=== PATIENT | male | born 1965 ===

== ENCOUNTER 2022-04-27 10:39 | Inpatient (IN) | payer OTHER ==
[~2022-04-27] VITALS: Ht 188 cm; Wt 78.5 kg
[2022-04-27 12:26] LABS: BASOPHILS % (AUTO) 0.5 % (0.0-2.0); EOSINOPHILS % (AUTO) 0 % (1.0-6.0); HEMOGLOBIN 12.1 g/dL (13.5-17.5); LYMPHOCYTES # (AUTO) 0.7 K/uL (1.0-4.8); LYMPHOCYTES % (AUTO) 6.8 % (22.0-44.0); MEAN CORPUSCULAR HEMOGLOBIN 27.5 pg (26.0-34.0); MEAN CORPUSCULAR HGB CONC 32.6 G/dL (31.0-37.0); MEAN CORPUSCULAR VOLUME 84 fL (80-100); MONOCYTES # (AUTO) 0.2 K/uL (0.1-1.0); NEUTROPHILS # (AUTO) 9.7 K/uL (1.8-7.7); PLATELET COUNT (AUTO) 343 K/uL (150-450); RED BLOOD CELL COUNT(AUTO) 4.39 MIL/uL (4.50-5.90); RED CELL DISTRIBUTION WIDTH 14.8 % (11.5-14.5)
[2022-04-27 12:33] LABS: NEUTROPHILS % (AUTO) 90.7 % (40.0-70.0)
[2022-04-27 12:38] LABS: ANION GAP 11 mmol/L (8-16); CALCIUM, TOTAL 9.2 mg/dL (8.8-10.5); CARBON DIOXIDE 26 mmol/L (22-29); CHLORIDE 104 mmol/L (98-107); CREATININE 0.92 mg/dL (0.60-1.30); GLUCOSE,RANDOM 126 mg/dL (70-110); POTASSIUM 3.8 mmol/L (3.5-5.1); SODIUM SERUM 141 mmol/L (136-145); UREA NITROGEN, BLOOD 14 mg/dL (7-18)
[2022-04-27 12:40] LABS: GLOMERULAR FILTR. RATE CALC > 60 mL/min (>60)
[2022-04-27 12:42] LABS: COVID AG,FIA SOURCE NASAL SWAB
[2022-04-27 12:43] LABS: ALANINE AMINOTRANSFERASE 10 U/L (12-78); ALBUMIN 3.2 g/dL (3.4-5.0); ALKALINE PHOSPHATASE 67 U/L (46-116); ASPARTATE AMINOTRANSFERASE 12 U/L (15-37); BILIRUBIN,TOTAL 0.3 mg/dL (0.1-1.0); TOTAL PROTEIN, SERUM 7.5 g/dL (6.4-8.2)
[2022-04-27] MEDS ORDERED: ALBUTEROL SULFATE 2.5 MG/0.5 ML NEB SOLUTION NEB PRN (13:15)
[2022-04-27] MEDS ORDERED: IPRATROPIUM BROMIDE 0.5 MG/2.5 ML NEB SOLUTION NEB PRN (13:15)
[2022-04-27] MEDS ORDERED: LORazepam 2 MG/ML VIAL IVP PRN (13:15)
[2022-04-27] MEDS ORDERED: BISACODYL 10 MG RECTAL RECTAL SUPPOSITORY PR PRN (13:15)
[2022-04-27] MEDS ORDERED: 0.9% SODIUM CHLORIDE 10 ML SYRINGE IVP PRN (13:15)
[2022-04-27] MEDS ORDERED: CloNIDine HCL 0.1 MG TABLET PO PRN (13:15)
[2022-04-27] MEDS: ACETAMINOPHEN 325 MG TABLET PO PRN ×3 (13:57→23:53)
[2022-04-27] MEDS: FAMOTIDINE 20 MG TABLET PO SCH (13:58)
[2022-04-27 15:52] VITALS: BP 102/60
[2022-04-27] MEDS: LOPERAMIDE HCL 2 MG CAPSULE PO PRN (17:48)
[2022-04-27] MEDS: ONDANSETRON HCL 4 MG/2 ML VIAL IVP PRN (19:47)
[2022-04-27 19:50] VITALS: BP 107/72
[2022-04-28] MEDS: ONDANSETRON HCL 4 MG/2 ML VIAL IVP PRN ×2 (02:09→13:05)
[2022-04-28 04:25] VITALS: BP 117/67
[2022-04-28 06:41] LABS: BASOPHILS % (AUTO) 0.3 % (0.0-2.0); EOSINOPHILS % (AUTO) 0.1 % (1.0-6.0); HEMOGLOBIN 11.5 g/dL (13.5-17.5); LYMPHOCYTES # (AUTO) 1.1 K/uL (1.0-4.8); LYMPHOCYTES % (AUTO) 14.7 % (22.0-44.0); MEAN CORPUSCULAR HEMOGLOBIN 27.8 pg (26.0-34.0); MEAN CORPUSCULAR HGB CONC 32.8 G/dL (31.0-37.0); MEAN CORPUSCULAR VOLUME 85 fL (80-100); MONOCYTES # (AUTO) 0.5 K/uL (0.1-1.0); MONOCYTES % (AUTO) 5.9 % (2.0-9.0); PLATELET COUNT (AUTO) 278 K/uL (150-450); RED BLOOD CELL COUNT(AUTO) 4.12 MIL/uL (4.50-5.90); RED CELL DISTRIBUTION WIDTH 15.1 % (11.5-14.5)
[2022-04-28 06:59] LABS: ALANINE AMINOTRANSFERASE 9 U/L (12-78); ALBUMIN 3.3 g/dL (3.4-5.0); ALKALINE PHOSPHATASE 67 U/L (46-116); ANION GAP 9 mmol/L (8-16); ASPARTATE AMINOTRANSFERASE 12 U/L (15-37); BILIRUBIN,TOTAL 0.4 mg/dL (0.1-1.0); CARBON DIOXIDE 26 mmol/L (22-29); CHLORIDE 106 mmol/L (98-107); CREATININE 0.86 mg/dL (0.60-1.30); GLUCOSE,RANDOM 104 mg/dL (70-110); POTASSIUM 3.2 mmol/L (3.5-5.1); SODIUM SERUM 141 mmol/L (136-145); TOTAL PROTEIN, SERUM 7.1 g/dL (6.4-8.2); UREA NITROGEN, BLOOD 14 mg/dL (7-18)
[2022-04-28 07:15] LABS: GLOMERULAR FILTR. RATE CALC > 60 mL/min (>60)
[2022-04-28 08:13] VITALS: BP 119/75
[2022-04-28] MEDS: FOLIC ACID 1 MG TABLET PO SCH (08:36)
[2022-04-28] MEDS: FAMOTIDINE 20 MG TABLET PO SCH (08:36)
[2022-04-28] MEDS: MULTIVITAMINS WITH MINERALS, THERAPEUTIC TABLET PO SCH (08:36)
[2022-04-28] MEDS: THIAMINE 100 MG TABLET PO SCH (08:36)
[2022-04-28] MEDS ORDERED: POTASSIUM CHLORIDE 20 MEQ ER TABLET PO PRN (15:30)
[2022-04-28] MEDS: METHADONE HCL 10 MG TABLET PO SCH (15:35)
[2022-04-28 15:40] VITALS: BP 131/81
[2022-04-28 20:05] VITALS: BP 107/68
[2022-04-28] MEDS: ACETAMINOPHEN 325 MG TABLET PO PRN (20:26)
[2022-04-29 04:40] VITALS: BP 113/73
[2022-04-29 06:46] LABS: BASOPHILS % (AUTO) 0.6 % (0.0-2.0); EOSINOPHILS % (AUTO) 0.1 % (1.0-6.0); HEMATOCRIT 33.7 % (41-53); HEMOGLOBIN 11.1 g/dL (13.5-17.5); LYMPHOCYTES # (AUTO) 1.4 K/uL (1.0-4.8); LYMPHOCYTES % (AUTO) 18.8 % (22.0-44.0); MEAN CORPUSCULAR HEMOGLOBIN 27.6 pg (26.0-34.0); MEAN CORPUSCULAR HGB CONC 32.8 G/dL (31.0-37.0); MEAN CORPUSCULAR VOLUME 84 fL (80-100); MONOCYTES # (AUTO) 0.5 K/uL (0.1-1.0); MONOCYTES % (AUTO) 6.8 % (2.0-9.0); NEUTROPHILS # (AUTO) 5.4 K/uL (1.8-7.7); NEUTROPHILS % (AUTO) 73.7 % (40.0-70.0); PLATELET COUNT (AUTO) 232 K/uL (150-450); RED BLOOD CELL COUNT(AUTO) 4.01 MIL/uL (4.50-5.90); RED CELL DISTRIBUTION WIDTH 15.1 % (11.5-14.5)
[2022-04-29 06:57] LABS: ANION GAP 7 mmol/L (8-16); CALCIUM, TOTAL 8.6 mg/dL (8.8-10.5); CARBON DIOXIDE 26 mmol/L (22-29); CHLORIDE 107 mmol/L (98-107); CREATININE 0.84 mg/dL (0.60-1.30); GLUCOSE,RANDOM 98 mg/dL (70-110); POTASSIUM 4.1 mmol/L (3.5-5.1); SODIUM SERUM 140 mmol/L (136-145); UREA NITROGEN, BLOOD 14 mg/dL (7-18)
[2022-04-29 07:00] LABS: GLOMERULAR FILTR. RATE CALC > 60 mL/min (>60)
[2022-04-29 08:00] VITALS: BP 120/69
[2022-04-29] MEDS: THIAMINE 100 MG TABLET PO SCH (10:05)
[2022-04-29] MEDS: MULTIVITAMINS WITH MINERALS, THERAPEUTIC TABLET PO SCH (10:05)
[2022-04-29] MEDS: FAMOTIDINE 20 MG TABLET PO SCH (10:05)
[2022-04-29] MEDS: METHADONE HCL 10 MG TABLET PO SCH (10:06)
[2022-04-29] MEDS: FOLIC ACID 1 MG TABLET PO SCH (10:06)
[2022-04-29 15:15] VITALS: BP 124/70
[2022-04-29 20:01] VITALS: BP 119/76
[2022-04-29] MEDS: LOPERAMIDE HCL 2 MG CAPSULE PO PRN (20:11)
[2022-04-30 04:35] VITALS: BP 117/78
[2022-04-30 07:59] VITALS: BP 121/70
[2022-04-30] MEDS: MULTIVITAMINS WITH MINERALS, THERAPEUTIC TABLET PO SCH (09:38)
[2022-04-30] MEDS: FOLIC ACID 1 MG TABLET PO SCH (09:38)
[2022-04-30] MEDS: FAMOTIDINE 20 MG TABLET PO SCH (09:38)
[2022-04-30] MEDS: METHADONE HCL 10 MG TABLET PO SCH (09:39)
[2022-04-30] MEDS: THIAMINE 100 MG TABLET PO SCH (09:39)
[2022-04-30 11:50] LABS: AMPHET/METH SCREEN,URINE NEGATIVE (NEGATIVE); BARBITURATE SCREEN, URINE NEGATIVE (NEGATIVE); BENZODIAZEPINES SCREEN,URINE NEGATIVE (NEGATIVE); CANNABINOID SCREEN,URINE NEGATIVE (NEGATIVE); COCAINE SCREEN,URINE NEGATIVE (NEGATIVE); METHADONE SCREEN, URINE NEGATIVE (NEGATIVE); OPIATE SCREEN,URINE NEGATIVE (NEGATIVE); PHENCYCLIDINE SCREEN,URINE NEGATIVE (NEGATIVE)
[2022-04-30 15:35] VITALS: BP 107/61
[2022-04-30 19:59] VITALS: BP 106/59
[2022-05-01] MEDS: ACETAMINOPHEN 325 MG TABLET PO PRN (04:54)
[2022-05-01 05:21] VITALS: BP 109/68
[2022-05-01 07:57] VITALS: BP 114/77
[2022-05-01] MEDS: METHADONE HCL 10 MG TABLET PO SCH (08:30)
[2022-05-01] MEDS: MULTIVITAMINS WITH MINERALS, THERAPEUTIC TABLET PO SCH (08:30)
[2022-05-01] MEDS: FOLIC ACID 1 MG TABLET PO SCH (08:31)
[2022-05-01] MEDS: FAMOTIDINE 20 MG TABLET PO SCH (08:31)
[2022-05-01] MEDS: DOCUSATE SODIUM 100 MG CAPSULE PO PRN ×2 (08:31→20:18)
[2022-05-01] MEDS: THIAMINE 100 MG TABLET PO SCH (08:31)
[2022-05-01 16:01] VITALS: BP 95/71
[2022-05-01 20:17] VITALS: BP 108/74
[2022-05-02 04:34] VITALS: BP 116/75
[2022-05-02 08:00] VITALS: BP 113/61
[2022-05-02] MEDS: FAMOTIDINE 20 MG TABLET PO SCH (08:50)
[2022-05-02] MEDS: METHADONE HCL 10 MG TABLET PO SCH (08:50)
[2022-05-02] MEDS: DOCUSATE SODIUM 100 MG CAPSULE PO PRN (08:50)
[2022-05-02] MEDS: MULTIVITAMINS WITH MINERALS, THERAPEUTIC TABLET PO SCH (08:50)
[2022-05-02] MEDS: THIAMINE 100 MG TABLET PO SCH (08:50)
[2022-05-02] MEDS: FOLIC ACID 1 MG TABLET PO SCH (08:51)
[2022-05-02 16:00] VITALS: BP 121/91
[2022-05-02 19:40] VITALS: BP 115/76
[2022-05-02] MEDS: ACETAMINOPHEN 325 MG TABLET PO PRN (23:50)
[2022-05-03 04:10] VITALS: BP 118/63
[2022-05-03] MEDS: MULTIVITAMINS WITH MINERALS, THERAPEUTIC TABLET PO SCH (07:53)
[2022-05-03] MEDS: METHADONE HCL 10 MG TABLET PO SCH (07:53)
[2022-05-03] MEDS: FOLIC ACID 1 MG TABLET PO SCH (07:54)
[2022-05-03] MEDS: THIAMINE 100 MG TABLET PO SCH (07:54)
[2022-05-03] MEDS: FAMOTIDINE 20 MG TABLET PO SCH (07:54)
[2022-05-03] MEDS: DOCUSATE SODIUM 100 MG CAPSULE PO PRN (07:54)
[2022-05-03 09:51] VITALS: BP 100/60
[2022-05-03 15:30] VITALS: BP 115/64
[2022-05-03 19:53] VITALS: BP 99/63
[2022-05-04 04:00] VITALS: BP 98/66
[2022-05-04] MEDS: MULTIVITAMINS WITH MINERALS, THERAPEUTIC TABLET PO SCH (08:32)
[2022-05-04] MEDS: THIAMINE 100 MG TABLET PO SCH (08:32)
[2022-05-04] MEDS: FAMOTIDINE 20 MG TABLET PO SCH (08:32)
[2022-05-04] MEDS: FOLIC ACID 1 MG TABLET PO SCH (08:32)
[2022-05-04] MEDS: METHADONE HCL 10 MG TABLET PO SCH (08:32)
[2022-05-04 16:32] VITALS: BP 94/63
[2022-05-04 19:58] VITALS: BP 102/69
[2022-05-05 05:18] VITALS: BP 109/73
[2022-05-05] MEDS: FAMOTIDINE 20 MG TABLET PO SCH (08:21)
[2022-05-05] MEDS: THIAMINE 100 MG TABLET PO SCH (08:21)
[2022-05-05] MEDS: MULTIVITAMINS WITH MINERALS, THERAPEUTIC TABLET PO SCH (08:21)
[2022-05-05] MEDS: METHADONE HCL 10 MG TABLET PO SCH (08:21)
[2022-05-05] MEDS: FOLIC ACID 1 MG TABLET PO SCH (08:21)
[2022-05-05 08:24] VITALS: BP 99/60
[2022-05-05 16:28] VITALS: BP 130/53
[2022-05-05 20:09] VITALS: BP 110/66
[2022-05-05] MEDS: ACETAMINOPHEN 325 MG TABLET PO PRN (20:19)
[2022-05-06 03:56] VITALS: BP 103/73
[2022-05-06] MEDS: THIAMINE 100 MG TABLET PO SCH (08:03)
[2022-05-06] MEDS: FAMOTIDINE 20 MG TABLET PO SCH (08:03)
[2022-05-06] MEDS: FOLIC ACID 1 MG TABLET PO SCH (08:04)
[2022-05-06] MEDS: MULTIVITAMINS WITH MINERALS, THERAPEUTIC TABLET PO SCH (08:04)
[2022-05-06 08:09] VITALS: BP 90/57
[2022-05-06] MEDS ORDERED: METHADONE HCL 10 MG TABLET PO SCH (09:00)
[2022-05-06 16:13] VITALS: BP 103/67
[2022-05-06 19:50] VITALS: BP 112/62
[2022-05-07 04:15] VITALS: BP 111/73
[2022-05-07 07:47] VITALS: BP 116/76
[2022-05-07] MEDS: THIAMINE 100 MG TABLET PO SCH (08:17)
[2022-05-07] MEDS: FOLIC ACID 1 MG TABLET PO SCH (08:17)
[2022-05-07] MEDS: MULTIVITAMINS WITH MINERALS, THERAPEUTIC TABLET PO SCH (08:17)
[2022-05-07] MEDS: FAMOTIDINE 20 MG TABLET PO SCH (08:17)
[2022-05-07] MEDS ORDERED: METHADONE HCL 10 MG TABLET PO ONE (09:00)
[2022-05-07] MEDS ORDERED: MULT-1203 PO (13:33)
[2022-05-07] MEDS: ONDANSETRON HCL 4 MG/2 ML VIAL IVP PRN (15:20)
[2022-05-07 16:20] VITALS: BP 128/77
[2022-05-07] MEDS: ACETAMINOPHEN 325 MG TABLET PO PRN (17:26)
[2022-05-07 19:39] VITALS: BP 124/74
[2022-05-07] MEDS: DOCUSATE SODIUM 100 MG CAPSULE PO PRN (19:56)
[2022-05-08] MEDS ORDERED: METHADONE HCL 10 MG/5 ML SOLUTION ORAL.SYG PO ONE (09:00)
[2022-05-08] MEDS ORDERED: METHADONE HCL 10 MG TABLET PO SCH (09:00)
[2022-05-10] MEDS ORDERED: METHADONE HCL 10 MG TABLET PO ONE (09:00)
== END 2022-05-08 06:32 | DRG 641 ==
LOC: EMS 10:45 → 6S 14:07
PROVIDERS: ADMIT Internal Medicine; ATTEND Internal Medicine
DX: E87.6 Hypokalemia (principal); F11.23 Opioid dependence with withdrawal; G89.29 Other chronic pain; Z20.822 Contact with and (suspected) exposure to COVID-19; Z87.891 Personal history of nicotine dependence; Z79.899 Other long term (current) drug therapy; Z98.1 Arthrodesis status; Z88.8 Allergy status to other drugs, medicaments and biological substances
CPT/HCPCS: 71045; 80048; 80053; 84132; 85025; 93005; 99285; G0480; J2405; 36415-L1; 36415-TC